=== PATIENT | female | born 1965 | race Two or more races ===

== ENCOUNTER → 2016-11-22 | Outpatient (CLI) | payer MEDICAID | END | disposition home or self-care (01) | LOC: CFH 08:10 | PROVIDERS: ATTEND Nurse Practitioner Family | DX: Z12.31 Encounter for screening mammogram for malignant neoplasm of breast (principal); Z13.820 Encounter for screening for osteoporosis; M85.9 Disorder of bone density and structure, unspecified; N64.89 Other specified disorders of breast; E04.2 Nontoxic multinodular goiter | CPT/HCPCS: 76536; 77080; G0202 ==

== ENCOUNTER → 2016-11-30 | Outpatient (CLI) | payer MEDICAID ==
[~2016-11-30] MED LIST: LIDOCAINE 1%, 20ML ONE
== END | disposition home or self-care (01) ==
LOC: RAD 12:49
PROVIDERS: ATTEND Nurse Practitioner Family
DX: E04.2 Nontoxic multinodular goiter (principal)
CPT/HCPCS: 76942; 88173; J3490

== ENCOUNTER → 2016-12-26 | Outpatient (CLI) | payer MEDICAID | END | disposition home or self-care (01) | LOC: CFH 10:57 | PROVIDERS: ATTEND Nurse Practitioner Family | DX: N63 Unspecified lump in breast (principal) | CPT/HCPCS: 76642; G0204 ==

== ENCOUNTER → 2017-01-08 | Outpatient (CLI) | payer MEDICAID | END | disposition home or self-care (01) | LOC: CFH 06:53 | PROVIDERS: ATTEND Surgery | DX: D24.1 Benign neoplasm of right breast (principal) | CPT/HCPCS: 19083; 88305; J3490 ==

== ENCOUNTER → 2017-01-30 | Outpatient (CLI) | payer MEDICAID ==
[~2017-01-30] MED LIST changes: +ACET325T14 PO; +DIAZ5TAB4 PO; -LIDOCAINE 1%, 20ML ONE; +MULT-224 PO
== END | disposition home or self-care (01) ==
LOC: STAR 10:30
PROVIDERS: ATTEND Surgery
DX: Z02.9 Encounter for administrative examinations, unspecified (principal)

== ENCOUNTER 2017-03-28 16:52 | Emergency (ER) | payer MEDICAID ==
[~2017-03-28] VITALS: Ht 167.6 cm; Wt 78.2 kg
[~2017-03-28 16:52] MED LIST changes: +CALC0.5C9 PO; +CALC200T3 PO; +HYDR-3240 PO; +LEVO125T PO
[2017-03-28 16:59] VITALS: BP 134/88
[2017-03-28] MEDS ORDERED: DIPH,PERTUSS(ACELL),TET VAC/PF 0.5 ML IM-VACC ONE ×2 (17:30→17:56)
[2017-03-28] MEDS ORDERED: LIDOCAINE 1%, 10ML ONE (17:49)
[2017-03-28] MEDS ORDERED: BUPIVACAINE 0.25% ONE (17:49)
[2017-03-28] MEDS ORDERED: MICROFIBRILLAR COLLAGEN 0.5GM/PACK TP ONE (18:00)
== END 2017-03-28 19:18 | disposition home or self-care (01) ==
LOC: ED 19:12
DX: S61.212A Laceration without foreign body of right middle finger without damage to nail, initial encounter (principal); W26.0XXA Contact with knife, initial encounter; X58.XXXA Exposure to other specified factors, initial encounter; Y93.89 Activity, other specified; Y92.009 Unspecified place in unspecified non-institutional (private) residence as the place of occurrence of the external cause; Y99.8 Other external cause status
CPT/HCPCS: 12001; 90471; 90715